=== PATIENT | male | born 1930 | race African-American/Black ===

== ENCOUNTER 2017-11-20 07:58 | Observation (INO) ==
[2017-11-20] MEDS ORDERED: Bisacodyl 10 MG Supp RECTAL PRN (15:06)
--- NOTE | 2017-11-20 15:38 | P.HPIM ---
History of Present Illness Primary Care Physician: UNKNOWN [facility] - History History Provided By: Patient - Medical History Medical History: Medical History (Last Updated 11/20/17 @ 09:45 by Monisha Malloy MD) High cholesterol Hypertension Peptic ulcer disease - Tobacco History Second Hand Smoke Exposure: No Smoking Status: Never smoker - Alcohol History How Often Do You Have a Drink Containing Alcohol: 2 to 3 times a week - Substance Use History Substance History: No History of Abuse - Travel History Recent Travel in the [place] Within the Last 8 Weeks: No Recent Travel Out of the Country Within the Last 8 Weeks: No Medications and Allergies Active Medications: Active Medications Al Hydroxide/Mg Hydroxide (Milk Of Magnesia Liq) 30 ml PO Q12H PRN PRN Reason: Mild Constipation Bisacodyl (Dulcolax Supp) 10 mg RECTAL DAILY PRN PRN Reason: SEVERE CONSITIPATION Lactulose (Lactulose Liq) 30 ml PO DAILY PRN PRN Reason: SEVERE CONSITIPATION Senna/Docusate Sodium (Sarah-Colace) 1 tab PO BID SONAM Sennosides (Senokot) 17.2 mg PO Q12H PRN PRN Reason: Moderate Constipation Temazepam (Restoril) 15 mg PO HS PRN PRN Reason: INSOMNIA Allergies Allergy/AdvReac Type Severity Reaction Status Date / Time No Known Allergies Allergy Verified 11/20/17 08:15 Home Medications Medication Instructions Recorded Confirmed Type alfuzosin 10 mg PO DAILY 11/20/17 11/20/17 History donepezil 5 mg PO DAILY 11/20/17 11/20/17 History gabapentin 300 mg PO TID 11/20/17 11/20/17 History levothyroxine 50 mcg PO DAILY 11/20/17 11/20/17 History losartan 50 mg PO DAILY 11/20/17 11/20/17 History pravastatin 40 mg PO DAILY 11/20/17 11/20/17 History Exam Vital signs: Vital Signs 11/20/17 15:09 Temperature 97.6 F Pulse Rate 76 Respiratory Rate 17 Blood Pressure 179/97 H Pulse Oximetry 100 Intake & Output 11/19/17 11/20/17 11/20/17 18:59 06:59 18:59 Weight 77.6 kg Other: Weight On Admission 77.6 kg Caprini VTE Risk Assessment Caprini Risk Assessment Model: Point Value = 1 Point Value = 2 Point Value = 3 Point Value = 5 Age 41-60 Minor surgery BMI > 25 kg/m2 Swollen legs Varicose veins or History of unexplained or recurrent spontaneous Oral contraceptives or hormone replacement Sepsis (< 1 month) Serious lung disease, including pneumonia (< 1 month) Abnormal pulmonary function Acute myocardial infarction Congestive heart failure (< 1 month) History of inflammatory bowel disease Medical patient at bed rest Age 61-74 Arthroscopic surgery Major open surgery (> 45 min) Laparoscopic surgery (> 45 min) Malignancy Confined to bed (> 72 hours) Immobilizing plaster cast Central venous access Age >= 75 History of VTE Family history of VTE Factor V Leiden Prothrombin [id number] Lupus anticoagulant Anticardiolipin antibodies Elevated serum homocysteine Heparin-induced thrombocytopenia Other congenital or acquired thrombophilia Stroke (< 1 month) Elective arthroplasty Hip, pelvis, or leg fracture Acute spinal cord injury (< 1 month) Prophylaxis Regimen: Total Risk Factor Score Risk Level Prophylaxis Regimen 0-1 Low Early ambulation 2 Moderate Order ONE of the following: *Sequential Compression Device (SCD) *Heparin 5000 units SQ BID 3-4 Higher Order ONE of the following medications: *Heparin 5000 units SQ TID *Enoxaparin/Lovenox 40 mg SQ daily (WT < 150 kg, CrCl > 30 mL/min) *Enoxaparin/Lovenox 30 mg SQ daily (WT < 150 kg, CrCl > 10-29 mL/min) *Enoxaparin/Lovenox 30 mg SQ BID (WT < 150 kg, CrCl > 30 mL/min) AND/OR *Sequential Compression Device (SCD) 5 or more Highest Order ONE of the following medications: *Heparin 5000 units SQ TID (Preferred with Epidurals) *Enoxaparin/Lovenox 40 mg SQ daily (WT < 150 kg, CrCl > 30 mL/min) *Enoxaparin/Lovenox 30 mg SQ daily (WT < 150 kg, CrCl > 10-29 mL/min) *Enoxaparin/Lovenox 30 mg SQ BID (WT < 150 kg, CrCl > 30 mL/min) AND *Sequential Compression Device (SCD) H&P: Quality - VTE Deep Vein Thrombosis/Pulmonary Embolism Present on Admission: No
--- NOTE | 2017-11-20 15:47 | P.HPIM ---
History of Present Illness Primary Care Physician: UNKNOWN Chief Complaint: Bilateral lower leg History of Present Illness: This is a pleasant 87-year-old male patient with a known medical history of BPH , underlying dementia, hypothyroidism, hypertension and hyperlipidemia who presented to the ED with progressively worsening bilateral lower extremity edema , worse on left leg. Patient states that over the past month he has had worsening swelling in his lower extremities and states that his left lower leg has been weeping as well as forming blisters with worsening redness. Patient sees a primary care doctor in [facility], last seen 2 weeks ago with no changes to his medicines, states he was referred to somewhere in [place] for follow-up with a vascular doctor. Patient states he has not been able to get over there to see a specialist. Patient denies any recent antibiotic use. He denies any recent illness including fever, chills, cough, shortness of breath, abdominal pain, nausea, vomiting, diarrhea or dysuria. Patient denies any history of congestive heart failure. He does state that he got an echocardiogram roughly 3 -4 weeks ago which was reportedly negative. 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 Supposedly this episode lasted a few hours and then went away on its own. Head CT was done in the ED showing no acute abnormality. Upon assessment speech is clear with no difficulty noted. He does not report any focal weakness, numbness or tingling. Patient was given IV vancomycin as well as ceftriaxone in ED. Blood cultures and wound cultures pending. - Diagnosis (1) Cellulitis of left leg (2) Expressive aphasia Review of Systems All other systems reviewed negative except as stated in HPI PMFSH - History History Provided By: Patient - Medical History Medical History: Medical History (Last Updated 11/20/17 @ 16:24 by Corinna Tavares) History of CVA (cerebrovascular accident) Perforated gastric ulcer High cholesterol Hypertension Peptic ulcer disease - Family History Family History: Family History (Last Updated 11/20/17 @ 16:24 by Corinna Tavares) Other No pertinent family history - Tobacco History Second Hand Smoke Exposure: Yes ( smokes) Tobacco Use In Past 30 Days: No Smoking Status: Never smoker - Alcohol History How Often Do You Have a Drink Containing Alcohol: 2 to 3 times a week - Substance Use History Substance History: No History of Abuse - Travel History Recent Travel in the [place] Within the Last 8 Weeks: No Recent Travel Out of the Country Within the Last 8 Weeks: No Medications and Allergies Active Medications: Active Medications Al Hydroxide/Mg Hydroxide (Milk Of Magnesia Liq) 30 ml PO Q12H PRN PRN Reason: Mild Constipation Bisacodyl (Dulcolax Supp) 10 mg RECTAL DAILY PRN PRN Reason: SEVERE CONSITIPATION Lactulose (Lactulose Liq) 30 ml PO DAILY PRN PRN Reason: SEVERE CONSITIPATION Senna/Docusate Sodium (Sarah-Colace) 1 tab PO BID SONAM Sennosides (Senokot) 17.2 mg PO Q12H PRN PRN Reason: Moderate Constipation Temazepam (Restoril) 15 mg PO HS PRN PRN Reason: INSOMNIA Allergies Allergy/AdvReac Type Severity Reaction Status Date / Time No Known Allergies Allergy Verified 11/20/17 08:15 Home Medications Medication Instructions Recorded Confirmed Type alfuzosin 10 mg PO DAILY 11/20/17 11/20/17 History donepezil 5 mg PO DAILY 11/20/17 11/20/17 History gabapentin 300 mg PO TID 11/20/17 11/20/17 History levothyroxine 50 mcg PO DAILY 11/20/17 11/20/17 History losartan 50 mg PO DAILY 11/20/17 11/20/17 History pravastatin 40 mg PO DAILY 11/20/17 11/20/17 History Exam Vital signs: Vital Signs 11/20/17 15:09 Temperature 97.6 F Pulse Rate 76 Respiratory Rate 17 Blood Pressure 179/97 H Pulse Oximetry 100 Intake & Output 11/19/17 11/20/17 11/20/17 18:59 06:59 18:59 Weight 77.6 kg Other: Weight On Admission 77.6 kg Narrative: GENERAL: Well-developed, well-nourished elderly male patient in [facility]. SKIN: Warm and dry. Right lower extremity swelling, 1+ with scattered scabs. Left lower extremity with edema, 2+, with multiple weeping scabs. HEAD: Normocephalic. Atraumatic. EYES: Pupils equal and round. No scleral icterus. No injection or drainage. ENT: No nasal bleeding or discharge. Mucous membranes pink and moist. NECK: Supple. Trachea midline. CARDIOVASCULAR: Regular rate and rhythm. S1, S2 noted. No murmur appreciated. RESPIRATORY: No accessory muscle use. Clear to auscultation. Breath sounds equal bilaterally. GASTROINTESTINAL: Abdomen soft, non-tender, nondistended. Normoactive bowel sounds x4. MUSCULOSKELETAL: No obvious deformities. Extremities without clubbing, cyanosis , or edema. NEUROLOGICAL: Awake and alert. No obvious cranial nerve deficits. Motor grossly within normal limits. 5/5 muscle strength in bilateral upper and lower extremities. Normal speech. PSYCHIATRIC: Appropriate mood and affect; insight and judgment normal. Caprini VTE Risk Assessment Caprini VTE Risk Assessment: Moderate/High Risk (score >= 2) Caprini Risk Assessment Model: Point Value = 1 Point Value = 2 Point Value = 3 Point Value = 5 Age 41-60 Minor surgery BMI > 25 kg/m2 Swollen legs Varicose veins or History of unexplained or recurrent spontaneous Oral contraceptives or hormone replacement Sepsis (< 1 month) Serious lung disease, including pneumonia (< 1 month) Abnormal pulmonary function Acute myocardial infarction Congestive heart failure (< 1 month) History of inflammatory bowel disease Medical patient at bed rest Age 61-74 Arthroscopic surgery Major open surgery (> 45 min) Laparoscopic surgery (> 45 min) Malignancy Confined to bed (> 72 hours) Immobilizing plaster cast Central venous access Age >= 75 History of VTE Family history of VTE Factor V Leiden Prothrombin [id number] Lupus anticoagulant Anticardiolipin antibodies Elevated serum homocysteine Heparin-induced thrombocytopenia Other congenital or acquired thrombophilia Stroke (< 1 month) Elective arthroplasty Hip, pelvis, or leg fracture Acute spinal cord injury (< 1 month) Prophylaxis Regimen: Total Risk Factor Score Risk Level Prophylaxis Regimen 0-1 Low Early ambulation 2 Moderate Order ONE of the following: *Sequential Compression Device (SCD) *Heparin 5000 units SQ BID 3-4 Higher Order ONE of the following medications: *Heparin 5000 units SQ TID *Enoxaparin/Lovenox 40 mg SQ daily (WT < 150 kg, CrCl > 30 mL/min) *Enoxaparin/Lovenox 30 mg SQ daily (WT < 150 kg, CrCl > 10-29 mL/min) *Enoxaparin/Lovenox 30 mg SQ BID (WT < 150 kg, CrCl > 30 mL/min) AND/OR *Sequential Compression Device (SCD) 5 or more Highest Order ONE of the following medications: *Heparin 5000 units SQ TID (Preferred with Epidurals) *Enoxaparin/Lovenox 40 mg SQ daily (WT < 150 kg, CrCl > 30 mL/min) *Enoxaparin/Lovenox 30 mg SQ daily (WT < 150 kg, CrCl > 10-29 mL/min) *Enoxaparin/Lovenox 30 mg SQ BID (WT < 150 kg, CrCl > 30 mL/min) AND *Sequential Compression Device (SCD) Assessment and Plan - Assessment (1) Cellulitis of left leg Code(s): L03.116 - Cellulitis of left lower limb Status: Acute (2) Expressive aphasia Code(s): R47.01 - Aphasia Status: Acute - Plan This is a pleasant 87-year-old male patient with a known medical history of BPH , underlying dementia, hypothyroidism, hypertension and hyperlipidemia who presented to the ED with progressively worsening bilateral lower extremity edema , worse on left leg. Patient states that over the past month he has had worsening swelling in his lower extremities and states that his left lower leg has been weeping as well as forming blisters with worsening redness. Bilateral lower extremity cellulitis, worse on left -Patient was given IV vancomycin and ceftriaxone in the ED. Will continue vancomycin and cefepime. -Wound culture pending. Blood cultures pending. Continue to follow. -Ultrasound of left lower extremity was negative for DVT. -Will order for 1 dose of Lasix for edema. Monitor response. -Supportive care. Expressive aphasia 3 days ago. Resolved. History of CVA History of dementia -Head CT ordered by ED physician, reviewed and showing no acute findings. There are moderate atrophic changes and chronic small vessel ischemic changes. -Continue home medications. -No residual aphasia or weakness. Physical therapy consulted, and evaluation pending. Acute on chronic kidney injury -After review of records there are no reports of any previous kidney studies. -Patient does state that he might have chronic kidney disease although unaware exactly stage. -Will attempt 1 dose of Lasix for lower extremity edema. Monitor BMP in a.m. -Hold ARBs for now. -Patient does state he had an echocardiogram 4 weeks ago which was reportedly negative. He denies any history of CHF. Hypertension, chronic: Will hold home ARB secondary to renal function. Clonidine as needed per parameters. Monitor blood pressure trends. Hypothyroidism, chronic: Continue home levothyroxine. Hyperlipidemia, chronic: Continue home statin. Social issues: -Patient states that he lives at home with his although states she is "evil " and that she does not feed him unless he is nice to her. -He states that he does not want to go home and wants to live somewhere else. -Requesting case management assistance. Appreciate input and recommendations for discharge planning. DVT prophylaxis: SCDs. Heparin. H&P: Quality - VTE Deep Vein Thrombosis/Pulmonary Embolism Present on Admission: No
[2017-11-20] MEDS: Levothyroxine 50 MCG Tablet PO SCH (17:22)
[2017-11-20] MEDS ORDERED: Temazepam 15 MG Capsule PO PRN (21:00)
[2017-11-20] MEDS: Senna/Docusate Sodium 8.6/50 MG Tablet PO SCH (21:05)
[2017-11-20] MEDS: Heparin - SQ 10,000 UNITS/ML Vial SQ SCH (21:05)
[2017-11-21] MEDS: Levothyroxine 50 MCG Tablet PO SCH (06:19)
[2017-11-21 06:41] LABS: Potassium 4.6 meq/L (3.5-5.1)
[2017-11-21 06:44] LABS: Calcium 8.5 mg/dL (8.5-10.1); Carbon Dioxide 28.8 meq/L (21.0-32.0)
[2017-11-21] MEDS: Heparin - SQ 10,000 UNITS/ML Vial SQ SCH ×2 (08:52→20:48)
[2017-11-21] MEDS: Senna/Docusate Sodium 8.6/50 MG Tablet PO SCH ×2 (08:52→20:48)
--- NOTE | 2017-11-21 09:08 | P.PN ---
Subjective Interval history: Follow-up lower extremity cellulitis. Patient seen and examined, lying in bed comfortably no apparent distress. No acute events overnight. He states he feels improved, has been diuresing, legs less swollen today. Erythema improved. Patient is eating well with no nausea or vomiting. No fever overnight. No leukocytosis. Physical Exam Vital signs: Vital Signs 11/20/17 15:09 11/20/17 20:00 11/21/17 00:00 Temperature 97.6 F 96.6 F L 96.4 F L Pulse Rate 76 70 75 Respiratory Rate 17 18 20 Blood Pressure 179/97 H 103/59 L 127/73 Pulse Oximetry 100 97 96 Intake & Output 11/20/17 11/21/17 11/21/17 18:59 06:59 18:59 Intake Total 100 / 100 340 / 340 Output Total 350 / 350 600 / 600 Balance -250 / -250 -260 / -260 Weight 77.6 kg Intake: IV 100 / 100 100 / 100 Maxipime Inj 1,000 MG In NS Inj 100 / 100 100 / 100 100 ML @ 200 mls/hr IV.SIG Q8H SONAM Rx#:[id number] Oral 240 / 240 Output: Urine 350 / 350 600 / 600 Other: Weight On Admission 77.6 kg Narrative: GENERAL: Well-developed, well-nourished elderly male patient in [facility]. SKIN: Warm and dry. Right lower extremity swelling, 1+ with scattered scabs. Left lower extremity with edema, 1+, with multiple scabs. Not weeping. HEAD: Normocephalic. Atraumatic. EYES: Pupils equal and round. No scleral icterus. No injection or drainage. ENT: No nasal bleeding or discharge. Mucous membranes pink and moist. NECK: Supple. Trachea midline. CARDIOVASCULAR: Regular rate and rhythm. S1, S2 noted. No murmur appreciated. RESPIRATORY: No accessory muscle use. Clear to auscultation. Breath sounds equal bilaterally. GASTROINTESTINAL: Abdomen soft, non-tender, nondistended. Normoactive bowel sounds x4. MUSCULOSKELETAL: No obvious deformities. Extremities without clubbing, cyanosis , or edema. NEUROLOGICAL: Awake and alert. No obvious cranial nerve deficits. Motor grossly within normal limits. 5/5 muscle strength in bilateral upper and lower extremities. Normal speech. PSYCHIATRIC: Appropriate mood and affect; insight and judgment normal. Results - Labs CBC & Chem 7: 11/21/17 05:25 Laboratory Results - last 24 hr 11/21/17 05:25 Sodium 139 Potassium 4.6 Chloride 105 Carbon Dioxide 28.8 Anion Gap 5 BUN 23 H Creatinine 1.70 H Estimated GFR 46 L Random Glucose 89 Calcium 8.5 Assessment and Plan - Plan This is a pleasant 87-year-old male patient with a known medical history of BPH , underlying dementia, hypothyroidism, hypertension and hyperlipidemia who presented to the ED with progressively worsening bilateral lower extremity edema , worse on left leg. Patient states that over the past month he has had worsening swelling in his lower extremities and states that his left lower leg has been weeping as well as forming blisters with worsening redness. Bilateral lower extremity cellulitis -Patient was given IV vancomycin and ceftriaxone in the ED. continued on vancomycin and cefepime. -Wound culture showing group B beta strep and staph aureus. Awaiting KAYDEN and sensitivity. Blood cultures negative to date. Continue to follow. -Ultrasound of left lower extremity was negative for DVT. -Edema improved with one time Lasix. Monitor response. -Supportive care. Expressive aphasia 3 days ago. Resolved. History of CVA History of dementia -Head CT ordered by ED physician, reviewed and showing no acute findings. There are moderate atrophic changes and chronic small vessel ischemic changes. -Continue home medications. -No residual aphasia or weakness. Physical therapy consulted, appreciate input recommendations, possible home health care PT when discharged. Acute on chronic kidney injury -After review of records there are no reports of any previous kidney studies. -Patient does state that he might have chronic kidney disease although unaware exactly stage. -Will attempt 1 dose of Lasix for lower extremity edema. No improvement of creatinine overnight. -Hold ARBs. Avoid nephrotoxins. Pharmacy to dose vancomycin. Continue gentle hydration. -Patient does state he had an echocardiogram 4 weeks ago which was reportedly negative. He denies any history of CHF. Hypertension, chronic: Will hold home ARB secondary to renal function. Clonidine as needed per parameters. Monitor blood pressure trends. Will start on hydralazine. Hypothyroidism, chronic: Continue home levothyroxine. Hyperlipidemia, chronic: Continue home statin. Social issues: -Patient states that he lives at home with his although states she is "evil " and that she does not feed him unless he is nice to her. -He states that he does not want to go home and wants to live somewhere else. -Requesting case management assistance. Appreciate input and recommendations for discharge planning. DVT prophylaxis: SCDs. Heparin. Discharge Planning: Case management assisting with discharge planning. DCF involvement with home issues. Patient does have wound culture that is positive, awaiting KAYDEN and sensitivity. Patient will probably benefit from 1 more night of IV antibiotics. As well as monitoring of his renal function.
[2017-11-21] MEDS: Vancomycin Inj 1,000 MG in Sodium Chlor 0.9% Inj 250 ML IV.SIG SCH (10:06)
[2017-11-22] MEDS: Levothyroxine 50 MCG Tablet PO SCH (05:50)
[2017-11-22 06:51] LABS: Potassium 4.1 meq/L (3.5-5.1)
[2017-11-22 06:53] LABS: Calcium 8.6 mg/dL (8.5-10.1)
[2017-11-22 06:54] LABS: Carbon Dioxide 27.2 meq/L (21.0-32.0)
--- NOTE | 2017-11-22 08:12 | P.DS ---
Date of admission: 11/20/17 14:20 Primary care physician: UNKNOWN Brief History from admission: This is a pleasant 87-year-old male patient with a known medical history of BPH , underlying dementia, hypothyroidism, hypertension and hyperlipidemia who presented to the ED with progressively worsening bilateral lower extremity edema , worse on left leg. Patient states that over the past month he has had worsening swelling in his lower extremities and states that his left lower leg has been weeping as well as forming blisters with worsening redness. Patient sees a primary care doctor in [facility], last seen 2 weeks ago with no changes to his medicines, states he was referred to somewhere in [place] for follow-up with a vascular doctor. Patient states he has not been able to get over there to see a specialist. Patient denies any recent antibiotic use. He denies any recent illness including fever, chills, cough, shortness of breath, abdominal pain, nausea, vomiting, diarrhea or dysuria. Patient denies any history of congestive heart failure. He does state that he got an echocardiogram roughly 3 -4 weeks ago which was reportedly negative. 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 Supposedly this episode lasted a few hours and then went away on its own. Head CT was done in the ED showing no acute abnormality. Upon assessment speech is clear with no difficulty noted. He does not report any focal weakness, numbness or tingling. Patient was given IV vancomycin as well as ceftriaxone in ED. Blood cultures and wound cultures pending. DS: Medications - Discharge Medications Prescriptions: hydralazine 10 mg PO TID 30 Days #90 tab sulfamethoxazole-trimethoprim [Bactrim] 1 tab PO BID 12 Days #24 tab DS: Summary Hospital Course: This is a pleasant 87-year-old male patient with a known medical history of BPH , underlying dementia, hypothyroidism, hypertension and hyperlipidemia who presented to the ED with progressively worsening bilateral lower extremity edema , worse on left leg. Patient states that over the past month he has had worsening swelling in his lower extremities and states that his left lower leg has been weeping as well as forming blisters with worsening redness. Presented with bilateral lower extremity cellulitis was given IV Vanco and ceftriaxone, switched to ceftriaxone. Wound culture growing group beta strep as well as staph aureus. Blood cultures negative to date. Ultrasound of the left extremity negative for DVT. Edema improved with Lasix. Patient also presented with acute on chronic kidney injury, patient states that he has some type of chronic kidney disease although unaware of exactly what stage. Arms has been home. Nephrotoxins avoided. Patient gently hydrated. Creatinine improving. Echocardiogram reviewed from 4 weeks ago which was reportedly negative. He denies any history of CHF. There are reports of some expressive aphasia 3 days prior to presentation. 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 Head CT was done with no acute findings. Some chronic changes with moderate trophic changes. No residual aphasia weakness. Patient has history of hypertension, hypothyroidism and hyperlipidemia and these were all stabilized and discharged home to follow-up with PCP. Patient does present with some social issues. Case management assisted, DCF involvement. Patient will be discharged home today. - Time Spent with Patient Total time spent providing and/or coordinating discharge services: Greater than 30 minutes - Quality: VTE Deep Vein Thrombosis/Pulmonary Embolism Present on Admission: No Exam Vital signs: Vital Signs 11/21/17 12:00 11/21/17 20:00 11/22/17 00:00 Temperature 98.1 F 96.1 F L 97.8 F Pulse Rate 76 69 68 Respiratory Rate 20 20 20 Blood Pressure 136/100 H 162/99 H 158/92 H Pulse Oximetry 100 98 98 Intake & Output 11/21/17 11/22/17 11/22/17 18:59 06:59 18:59 Intake Total 200 / 200 220 / 220 Output Total 450 / 450 Balance 200 / 200 -230 / -230 Weight 76.6 kg Intake: IV 200 / 200 100 / 100 Maxipime Inj 1,000 MG In NS Inj 200 / 200 100 / 100 100 ML @ 200 mls/hr IV.SIG Q8H SONAM Rx#:[id number] Oral 120 / 120 Output: Urine 450 / 450 Other: # Voids 2 Date of Last Bowel Movement 11/21/17 # Bowel Movements 1 Narrative: GENERAL: Well-developed, well-nourished patient in NAD. SKIN: Warm and dry. No rash. Bilateral lower extremity scabbing, erythema improved. Swelling improved. HEAD: Normocephalic. Atraumatic. EYES: Pupils equal and round. No scleral icterus. No injection or drainage. ENT: No nasal bleeding or discharge. Mucous membranes pink and moist. NECK: Supple. Trachea midline. CARDIOVASCULAR: Regular rate and rhythm. S1, S2 noted. No murmur appreciated. RESPIRATORY: No accessory muscle use. Clear to auscultation. Breath sounds equal bilaterally. GASTROINTESTINAL: Abdomen soft, non-tender, nondistended. Normoactive bowel sounds x4. MUSCULOSKELETAL: No obvious deformities. Extremities without clubbing, cyanosis , or edema. NEUROLOGICAL: Awake and alert. No obvious cranial nerve deficits. Motor grossly within normal limits. 5/5 muscle strength in bilateral upper and lower extremities. Normal speech. PSYCHIATRIC: Appropriate mood and affect; insight and judgment normal. Results Procedures completed during hospitalization: None. Labs on day of discharge: Labs from last 24 hours 11/22/17 05:22 Sodium 139 Potassium 4.1 Chloride 107 Carbon Dioxide 27.2 Anion Gap 5 BUN 23 H Creatinine 1.40 H Estimated GFR 58 L Random Glucose 89 Calcium 8.6 Discharge Plan - Discharge Disposition Patient Disposition: W/Home Health Service - Discharge Condition Condition: Stable - Discharge Order Discharge Orders: Discharge Order (Routine); Ordered 11/22/17 Ordered By: Corinna Tavares - Discharge Details Anticipated Discharge Date: 11/22/17 - Physicians Team Primary Care Provider: UNKNOWN, Attending Provider: Pamela Rouse Other Providers: Arabella Bell - Rxs /Orders / Referrals /Forms Prescriptions: New hydralazine 10 mg Tablet 10 mg PO TID 30 Days Qty: 90 RF: 0 sulfamethoxazole-trimethoprim [Bactrim] 400-80 mg Tablet 1 tab PO BID 12 Days Qty: 24 RF: 0 Continue alfuzosin 10 mg Tablet Extended Release 24 Hr 10 mg PO DAILY donepezil 5 mg Tablet 5 mg PO DAILY gabapentin 300 mg Capsule 300 mg PO TID ledipasvir-sofosbuvir [Harvoni] 90-400 mg Tablet 1 tab PO DAILY levothyroxine 50 mcg Capsule 50 mcg PO DAILY pravastatin 40 mg Tablet 40 mg PO DAILY Discontinued losartan 25 mg Tablet 50 mg PO DAILY Ambulatory Orders / Order Sets / DME: Basic Metabolic Panel (Routine) Timeframe: 3 Days Location: Determined by Patient Ordered By: Corinna Tavares Referrals: UNKNOWN, [Primary Care Provider] - 11/27/17
--- NOTE | 2017-11-22 08:13 | P.DCO ---
- Home Health Nursing Order: Signs/symptoms of disease process, Medication education-adverse effect, Nursing assessment with vital signs - Echo Vasc Tech Order: To evaluate: Living conditions/environment, Support services - Certification I have seen patient Meño Ibanez on 11/22/17. My clinical findings support the need for the requested home health care services because: Medication compliance is questionable, Impaired cognition/judgement I certify that my clinical findings support that this patient is homebound because: Unsafe to leave home unassisted
[2017-11-22] MEDS: Senna/Docusate Sodium 8.6/50 MG Tablet PO SCH (08:21)
[2017-11-22] MEDS: Heparin - SQ 10,000 UNITS/ML Vial SQ SCH (08:22)
[2017-11-22] MEDS: Vancomycin Inj 1,000 MG in Sodium Chlor 0.9% Inj 250 ML IV.SIG SCH (08:42)
== END 2017-11-22 15:48 | disposition home health service (06) ==
LOC: PHEDDLT 07:58 → PH3 07:58
PROVIDERS: ADMIT Hospitalist; ATTEND Hospitalist